=== PATIENT | female | born 1990 | race Caucasian/White ===

== ENCOUNTER 2017-10-18 00:19 | Inpatient (IN) | payer BC ==
--- NOTE | 2017-10-18 06:37 | PCM.LDHP ---
L&D History of Present Illness - General Date of Service: 10/18/17 Admit Problem/Dx: Admission Diagnosis/Problem Admission Diagnosis/Problem 10/18/17 06:25 41-2/7 week intrauterine , medical induction for postdates Source of Information: Patient History Limitations: Reports: No Limitations - History of Present Illness Introduction:: History of present illness: Sharmila is a 27-year-old 4 para 3003 white female was admitted for medical induction for postdatism. Her ADAMA is 10/09/2017 as based upon a certain last menstrual period which started on 01/02/2017 and is supported by multiple ultrasounds on 03/27/2017, 06/04/2017 and 07/06/2017. Presently the patient's cervical evaluation shows 2 cm, 80% effaced, very soft consistency, mid position and -3. Plan is to proceed with Pitocin/artificial rupture membranes induction. The procedure, risks, benefits, alternatives of care including waiting for natural onset of labor all discussed with patient in detail. She appears understand and wishes to proceed. 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 Certain last menstrual period occurred on 01/02/2017 and lasted for 5 days. Her cycles come on a every 28 day basis. Menarche was at age 11. She is using no control to time conception. Tayler course has been relatively unremarkable. She declined genetic screening. She desires epidural in labor and delivery. Josephine depression screening score on 05/30/2017 was 0/30. Patient had a cyst in left ventricular echogenic focus seen on routine complete ultrasound at about 20 weeks. She declined [place] testing when this was noted to persist on repeat ultrasound. Patient plans to nurse the baby. She had mildly decreased platelets and on last evaluation in clinic her platelet count was 149,000. She is group B strep positive and is a candidate for antibiotic prophylaxis in labor and delivery. She has no known drug allergies. Patient was initially seen care on 03/27/2017 at 12 weeks gestation. Over the course of the she made good fundal height growth, vital signs remained stable. Weight increased from 146 pounds up to 176 pounds for a 30 pound weight gain. Laboratory testing and showed her blood type to be A+ with negative antibody screen. First laboratory testing showed hemoglobin 12.9 g/dL and a platelet count of 225,000. Group B strep was present in the initial urine culture. She is rubella immune. Second trimester labs showed a hemoglobin of 11.2 g/dL which time she was started on iron replacement therapy. Platelets are 149,000. Her diabetic screening test was normal at 91. Allergies none Medications: 1. Ferrous sulfate 3 and 25 mg twice a day 2. vitamins daily Past medical history: 1. Normal spontaneous vaginal delivery 3 Past surgical history unremarkable Family history: Patient's 3 daughters ages 73 and 2 alive and well. One brother age 36 alive and well. One sister age 37 alive and well. Mother age 56 alive and well except for parathyroid glands were removed due to nodules which were noncancerous. Father age 56 is alive and well. Maternal grandmother is alive and well except for arthritis and gout tissues. Maternal grandfather is alive but with a history of diabetes and bypass surgery 3, hypertension and a renal condition. Paternal grandmother is alive and well. Paternal grandfather is secondary to heart condition. No anesthesia, bleeding, blood clotting problems noted in the family. Social history: Patient is , is Darius Ramsey. 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 She does not use any significant amounts of alcohol, drugs or tobacco. She had her live in [place], [place]. Review of systems: In general patient has no concerns. She is feeling good activity and no significant contractions at this time. Skin: Negative HEENT, neck and back: Negative Cardiovascular: No chest pain or exercise intolerance Respiratory: No shortness of breath or infectious symptoms Breasts: Changes associated with . Patient does plan to breast-feed GI: Negative. : Increased fundal height consistent with . Musculoskeletal: Occasional edema otherwise unremarkable Neurological: Negative Physical exam: In general patient is well-developed, well-nourished, pleasant female stated age in no acute distress. Blood pressure on last evaluation clinic was 140/71, weight was 176.4 with pre- weight at 146 pounds. heart rate was 129. Her pre- body mass index was 25.6 and height is 5 feet 2 inches. Skin is warm dry without lesions. HEENT neck and back within normal limits Lungs are clear with good breath sounds in all lung mercado. Breast exam is deferred having been done at first visit found to be normal. Abdomen is protuberant with last fundal height at 40.5 cm with baby in vertex presentation. Cervix is 2 cm dilated, 80% effaced, very soft, mid position, -3 station on last evaluation clinic. Extremities and neurological exam are grossly within normal limits. - Related Data Allergies/Adverse Reactions: Allergies Allergy/AdvReac Type Severity Reaction Status Date / Time No Known Allergies Allergy Verified 01/23/14 13:09 Home Medications: Home Meds Amoxicillin 500 mg PO TID #21 tab 01/23/14 [Rx] Hydrocodone/Acetaminophen [Hydrocodone-Acetaminophen 5-325] 1 tab PO Q6H PRN # 15 tablet 01/23/14 [Rx] Ondansetron [Zofran ODT] 4 mg PO Q6H PRN #10 tab.dis 01/23/14 [Rx] PNV95/Ferrous Fumarate/FA [ Multivitamins] 1 each PO 07/13/14 [History] Acetaminophen [Tylenol] 650 mg PO Q6H PRN #50 tablet 07/15/14 [Rx] Benzocaine/Menthol [Dermoplast Pain Relief [place]] 1 spray TOP ASDIRECTED PRN #1 canister 07/15/14 [Rx] Docusate Sodium [Colace] 100 mg PO BID PRN #50 cap 07/15/14 [Rx] Ibuprofen [Motrin] 200 - 800 mg PO Q6H PRN #50 tablet 07/15/14 [Rx] Witch Trixie [Tucks] 1 pad TOP ASDIRECTED PRN #50 pad 07/15/14 [Rx] Past Medical History - Past Health History Medical/Surgical History: Denies Medical/Surgical History H&P Review of Systems - Review of Systems: Review Of Systems: See Below L&D Exam - Exam Exam: See Below Problem List Initiated/Reviewed/Updated: Yes Assessment/Plan Comment:: 1. 41-2/7 week intrauterine , admitted for medical induction of labor. 2. Group B strep positive status-candidate for ampicillin prophylaxis. 3. Rubella immune 4. Patient plans to breast-feed 5. Patient desires epidural in labor and delivery Plan: 1. Pitocin/artificial rupture membranes induction. Procedure, risks, benefits, alternatives of care including awaiting natural onset of labor all discussed with patient. She appears understand and wishes to proceed. I feel the benefits of induction outweigh the potential risk of induction at this time. 2. Epidural when necessary per patient desire 3. Support breast-feeding decision 4. CBC upon admission
[2017-10-18] MEDS ORDERED: Nalbuphine 20 MG/ML 1 ML Syringe IVPUSH PRN (06:42)
[2017-10-18] MEDS ORDERED: Sodium Chloride 0.9% 10 ML Syringe FLUSH PRN (06:42)
[2017-10-18] MEDS ORDERED: Lidocaine 1% 50 ML MDV INJECT ONE (06:42)
[2017-10-18] MEDS ORDERED: Ampicillin 2 GM in Sodium Chloride 0.9% 100 ML IV ONE (07:00)
[2017-10-18] MEDS: Oxytocin/Lactated Ringers 10 UNIT/1,000 ML BAG IV SCH ×2 (07:54→19:57)
[2017-10-18] MEDS: Lactated Ringers 1,000 ML IV SCH ×4 (07:55→19:54)
[2017-10-18] MEDS: Ampicillin 1 GM in Sodium Chloride 0.9% 100 ML IV SCH ×3 (11:19→19:55)
[2017-10-18] MEDS ORDERED: diphenhydrAMINE 50 MG/ML SDV IVPUSH PRN (12:05)
[2017-10-18] MEDS ORDERED: ePHEDrine 50 MG/ML SDV IVPUSH PRN (12:05)
[2017-10-18] MEDS ORDERED: fentaNYL 100 MCG/2 ML SDV EPIDUR PRN (12:05)
[2017-10-18] MEDS ORDERED: Bupivacaine/fentaNYL/NS 100 ML Bag EPIDUR SCH (12:15)
--- NOTE | 2017-10-18 12:56 | PCM.PREANE ---
Preanesthetic Assessment - Anesthesia/Transfusion/Family Hx Anesthesia History: Prior Anesthesia Without Reaction Family History of Anesthesia Reaction: No Transfusion History: No Prior Transfusion(s) - Review of Systems General: No Symptoms Pulmonary: No Symptoms Cardiovascular: No Symptoms Gastrointestinal: No Symptoms Neurological: No Symptoms Other: Reports: None - Physical Assessment Pulse: 69 O2 Sat by Pulse Oximetry: 97 Respiratory Rate: 18 Blood Pressure: 140/87 Temperature: 36.8 C Vital Signs: Last Vital Signs Temp 36.8 C 10/18/17 07:21 Pulse 69 10/18/17 07:21 Resp 18 10/18/17 07:21 BP 140/87 10/18/17 07:21 Pulse Ox Height: 1.57 m Weight: 78.834 kg ASA Class: 2 Mental Status: Alert & Oriented x3 Airway Class: Mallampati = 1 Dentition: Reports: Normal Dentition Thyro-Mental Finger Breadths: 3 Mouth Opening Finger Breadths: 3 ROM/Head Extension: Full Lungs: Clear to Auscultation, Normal Respiratory Effort Cardiovascular: Regular Rate, Regular Rhythm - Lab Values: Laboratory Last Values WBC 9.41 K/mm3 (3.98-10.04) 10/18/17 07:53 RBC 3.55 M/mm3 (3.98-5.22) L 10/18/17 07:53 Hgb 11.7 gm/L (11.2-15.7) 10/18/17 07:53 Hct 35.0 % (34.1-44.9) 10/18/17 07:53 MCV 98.6 fl (79.4-94.8) H 10/18/17 07:53 MCH 33.0 pg (25.6-32.2) H 10/18/17 07:53 MCHC 33.4 g/dl (32.2-35.5) 10/18/17 07:53 RDW Std Deviation 45.1 fL (36.4-46.3) 10/18/17 07:53 Plt Count 144 K/mm3 (182-369) L 10/18/17 07:53 MPV 10.3 fl (9.4-12.3) 10/18/17 07:53 Neut % (Auto) 68.0 % (34.0-71.1) 10/18/17 07:53 Lymph % (Auto) 20.4 % (19.3-51.7) 10/18/17 07:53 [place] % (Auto) 8.8 % (4.7-12.5) 10/18/17 07:53 Eos % (Auto) 2.3 (0.7-5.8) 10/18/17 07:53 Baso % (Auto) 0.2 % (0.1-1.2) 10/18/17 07:53 Neut # (Auto) 6.39 K/mm3 (1.56-6.13) H 10/18/17 07:53 Lymph # (Auto) 1.92 K/mm3 (1.18-3.74) 10/18/17 07:53 [place] # (Auto) 0.83 K/mm3 (0.24-0.36) H 10/18/17 07:53 Eos # (Auto) 0.22 K/mm3 (0.04-0.36) 10/18/17 07:53 Baso # (Auto) 0.02 K/mm3 (0.01-0.08) 10/18/17 07:53 - Allergies Allergies/Adverse Reactions: Allergies Allergy/AdvReac Type Severity Reaction Status Date / Time No Known Allergies Allergy Verified 10/18/17 07:23 - Anesthesia Plan Pre-Op Medication Ordered: None - Acknowledgements Anesthesia Type Planned: Epidural Pt an Appropriate Candidate for the Planned Anesthesia: Yes Alternatives and Risks of Anesthesia Discussed w Pt/Guardian: Yes Pt/Guardian Understands and Agrees with Anesthesia Plan: Yes PreAnesthesia Questionnaire - Past Health History Medical/Surgical History: Denies Medical/Surgical History Gastrointestinal History: Reports: GERD 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: Hematologic History: Reports: Anemia - Past Surgical History HEENT Surgical History: Reports: Oral Surgery - SUBSTANCE USE Smoking Status *Q: Never Smoker Recreational Drug Use History: No - HOME MEDS Home Medications: Home Meds Amoxicillin 500 mg PO TID #21 tab 01/23/14 [Rx] Hydrocodone/Acetaminophen [Hydrocodone-Acetaminophen 5-325] 1 tab PO Q6H PRN # 15 tablet 01/23/14 [Rx] Ondansetron [Zofran ODT] 4 mg PO Q6H PRN #10 tab.dis 01/23/14 [Rx] PNV95/Ferrous Fumarate/FA [ Multivitamins] 1 each PO 07/13/14 [History] Acetaminophen [Tylenol] 650 mg PO Q6H PRN #50 tablet 07/15/14 [Rx] Benzocaine/Menthol [Dermoplast Pain Relief [place]] 1 spray TOP ASDIRECTED PRN #1 canister 07/15/14 [Rx] Docusate Sodium [Colace] 100 mg PO BID PRN #50 cap 07/15/14 [Rx] Ibuprofen [Motrin] 200 - 800 mg PO Q6H PRN #50 tablet 07/15/14 [Rx] Witch Trixie [Tucks] 1 pad TOP ASDIRECTED PRN #50 pad 07/15/14 [Rx] - CURRENT (IN HOUSE) MEDS Current Meds: Current Medications Diphenhydramine HCl (Benadryl) 25 mg IVPUSH Q6H PRN PRN Reason: Itching Ephedrine Sulfate (Ephedrine Sulfate) 5 mg IVPUSH ASDIRECTED PRN PRN Reason: HYPOTENTSION Fentanyl (Sublimaze) 100 mcg EPIDUR Q3H PRN PRN Reason: PAIN Last Admin: 10/18/17 12:50 Dose: 100 mcg Fentanyl/Bupivacaine HCl (Fentanyl/Bupivacaine/Ns 2 Mcg-0.125% 100 Ml) 100 ml EPIDUR ASDIRECTED ROMEL Last Admin: 10/18/17 12:51 Dose: 100 ml Ampicillin Sodium 1 gm/ Sodium (Chloride) 100 mls @ 200 mls/hr IV Q4H ROMEL Last Admin: 10/18/17 11:19 Dose: 200 mls/hr Lactated Ringer's (Ringers, Lactated) 1,000 mls @ 100 mls/hr IV ASDIRECTED [facility] Last Infusion: 10/18/17 12:44 Dose: 100 mls/hr Oxytocin/Lactated Ringer's (Pitocin In Lr 10 Units/1,000 Ml) 10 unit in 1,000 mls @ 12 mls/hr IV TITRATE ROMEL; Protocol Last Titration: 10/18/17 10:20 Dose: 10 munits/min, 60 mls/hr Nalbuphine HCl (Nubain) 10 mg IVPUSH Q2H PRN PRN Reason: Pain (moderate 4-6) Sodium Chloride (Saline Flush) 10 ml FLUSH ASDIRECTED PRN PRN Reason: Keep Vein Open Discontinued Medications Ampicillin Sodium 2 gm/ Sodium (Chloride) 100 mls @ 200 mls/hr IV ONETIME ONE Stop: 10/18/17 07:29 Last Admin: 10/18/17 07:33 Dose: 200 mls/hr Lidocaine HCl (Xylocaine 1%) 10 ml INJECT ONETIME ONE Stop: 10/18/17 06:43
[2017-10-18] MEDS ORDERED: Bupivacaine 0.25% 10 ML SDV ONE (14:00)
[2017-10-18] MEDS ORDERED: Acetaminophen 325 MG Tab PO ONE (20:44)
--- NOTE | 2017-10-18 21:35 | PCM.SN ---
- Free Text/Narrative Note: Sharmila is a 27-year-old 4 now para 4004 white female at 41-2/7 weeks gestational age with an ADAMA of 10/09/2017 was admitted on 10/18/2017 for medical induction for post dates. She was induced with Pitocin followed by artificial rupture membranes. She progressed to complete cervical dilation by 0 hrs. she went on to deliver a viable, devries, female infant with Apgars of 8 and 9 , weight of 3420 g (7 pounds 8.6 ounces), a length of 20.5 inches in a left occiput anterior position at 2110 hrs. Baby was placed on mom's abdomen. The cord was noted be very short and had 3 blood vessels. The cord was clamped 2 and cut by the baby's father. Cord blood was obtained. The perineum and vagina were found to be intact with no lacerations. No suturing was necessary. The placenta delivered at 2115 hrs. in a [place] presentation. It appeared intact, complete and was discarded per patient desire. Estimated blood loss was 100 mL. Patient plans to nurse. Condition: Good.
[2017-10-18] MEDS ORDERED: Docusate Sodium 100 MG Cap PO PRN (22:47)
[2017-10-18] MEDS ORDERED: Witch Hazel Medicated Pads 100/Jar TOP PRN (22:47)
[2017-10-18] MEDS ORDERED: Acetaminophen 325 MG Tab PO PRN (22:47)
[2017-10-18] MEDS ORDERED: Lanolin 100% Cream 7 GM Tube TOP PRN (22:47)
[2017-10-18] MEDS ORDERED: Benzocaine/Menthol 20%-0.5% Spray 56 GM Canister TOP PRN (22:47)
[2017-10-19] MEDS: Ibuprofen 600 MG Tab PO PRN ×3 (00:11→21:30)
--- NOTE | 2017-10-19 09:22 | PCM.SN ---
- Free Text/Narrative Note: note: Patient is doing well in the period. Minimal lochia, voiding well, ambulated without problems. Nursing without concerns. Patient is afebrile, vital signs are stable Abdomen is flat, soft, uterus is below the umbilicus and is firm and nontender. Legs are nontender. Hemoglobin is 10.5. Platelets are 138. Assessment: recovery going well. Plan: Routine care. Patient be discharged home within the next 24- 48 hours.
--- NOTE | 2017-10-19 13:05 | PCM48HPAN ---
Post Anesthesia Note - EVALUATION WITHIN 48HRS OF ANESTHETIC Vital Signs in Normal Range: Yes Patient Participated in Evaluation: Yes Respiratory Function Stable: Yes Airway Patent: Yes Cardiovascular Function Stable: Yes Hydration Status Stable: Yes Pain Control Satisfactory: Yes Nausea and Vomiting Control Satisfactory: Yes Mental Status Recovered: Yes
[2017-10-20] MEDS: Ibuprofen 600 MG Tab PO PRN ×2 (05:03→10:29)
[2017-10-20 08:19] VITALS: BP 134/92
--- NOTE | 2017-10-20 10:39 | PCM.DCSUM1 ---
Discharge Summary - Hospital Course Free Text/Narrative:: [facility] Provider Simple Note Patient Name: SHARMILA GALVEZ Date of : 86 Patient Status: Inpatient Attending Provider: Mike Corey Date: 10/18/17 21:30 Initialization Date: 10/18/17 21:30 - Free Text/Narrative Note: Sharmila is a 27-year-old 4 now para 4004 white female at 41-2/7 weeks gestational age with an ADAMA of 10/09/2017 was admitted on 10/18/2017 for medical induction for post dates. She was induced with Pitocin followed by artificial rupture membranes. She progressed to complete cervical dilation by 2050 hrs. she went on to deliver a viable, devries, female infant with Apgars of 8 and 9 , weight of 3420 g (7 pounds 8.6 ounces), a length of 20.5 inches in a left occiput anterior position at 2110 hrs. Baby was placed on mom's abdomen. The cord was noted be very short and had 3 blood vessels. The cord was clamped 2 and cut by the baby's father. Cord blood was obtained. The perineum and vagina were found to be intact with no lacerations. No suturing was necessary. The placenta delivered at 2115 hrs. in a [place] presentation. It appeared intact, complete and was discarded per patient desire. Estimated blood loss was 100 mL. Patient plans to nurse. Condition: Good. HPI Initial Comments: [facility] Provider Simple Note Patient Name: SHARMILA GALVEZ Date of : 86 Patient Status: Inpatient Attending Provider: Mike Corey Date: 10/18/17 21:30 Initialization Date: 10/18/17 21:30 - Free Text/Narrative Note: Sharmila is a 27-year-old 4 now para 4004 white female at 41-2/7 weeks gestational age with an ADAMA of 10/09/2017 was admitted on 10/18/2017 for medical induction for post dates. She was induced with Pitocin followed by artificial rupture membranes. She progressed to complete cervical dilation by 2049 hrs. she went on to deliver a viable, devries, female with Apgars of 8 and 9 , weight of 3420 g (7 pounds 8.6 ounces), a length of 20.5 inches in a left occiput anterior position at 2110 hrs. Baby was placed on mom's abdomen. The cord was noted be very short and had 3 blood vessels. The cord was clamped 2 and cut by the baby's father. Cord blood was obtained. The perineum and vagina were found to be intact with no lacerations. No suturing was necessary. The placenta delivered at 2115 hrs. in a [place]za presentation. It appeared intact, complete and was discarded per patient desire. Estimated blood loss was 100 mL. Patient plans to nurse. Condition: Good. Brief History: [facility] . Provider Simple Note. Patient Name : SHARMILA GALVEZ [facility] Record Number: [id number]. Date of : Patient Status: Inpatient. Attending Provider: Mike Corey FAccount Number : [id number]. Date: 10/18/17 21:30Initialization Date: 10/18/17 21:30. - Free Text/Narrative. Note: Sharmila is a 27-year-old 4 now para 4004 white female at 41-2/7 weeks gestational age with an ADAMA of 10/09/2017 was admitted on 10/18/2017 for medical induction for post dates. She was induced with Pitocin followed by artificial rupture membranes. She progressed to complete cervical dilation by 2049 hrs. she went on to deliver a viable, devries, female with Apgars of 8 and 9, weight of 3420 g (7 pounds 8.6 ounces), a length of 20.5 inches in a left occiput anterior position at 2110 hrs. Baby was placed on mom's abdomen. The cord was noted be very short and had 3 blood vessels. The cord was clamped 2 and cut by the baby's father. Cord blood was obtained. The perineum and vagina were found to be intact with no lacerations. No suturing was necessary. The placenta delivered at 2115 hrs. in a [place]za presentation. It appeared intact, complete and was discarded per patient desire. Estimated blood loss was 100 mL. Patient plans to nurse. Condition: Good. - Discharge Data Discharge Date: 10/20/17 Discharge Disposition: Home, Self-Care 01 Condition: Good - Discharge Diagnosis/Problem(s) (1) 41 weeks gestation of SNOMED Code(s): 74209718 ICD Code: Z3A.41 - 41 WEEKS GESTATION OF Status: Acute Current Visit: Yes (2) Delivery normal SNOMED Code(s): 48127785, 059061486 ICD Code: O80 - ENCOUNTER FOR FULL-TERM UNCOMPLICATED DELIVERY Status: Acute Current Visit: Yes - Patient Summary/Data Complications: None Consults: None Hospital Course: Uneventful - Discharge Plan Home Medications: Home Meds Amoxicillin 500 mg PO TID #21 tab 01/23/14 [Rx] Hydrocodone/Acetaminophen [Hydrocodone-Acetaminophen 5-325] 1 tab PO Q6H PRN # 15 tablet 01/23/14 [Rx] Ondansetron [Zofran ODT] 4 mg PO Q6H PRN #10 tab.dis 01/23/14 [Rx] PNV95/Ferrous Fumarate/FA [ Multivitamins] 1 each PO 07/13/14 [History] Acetaminophen [Tylenol] 650 mg PO Q6H PRN #50 tablet 07/15/14 [Rx] Benzocaine/Menthol [Dermoplast Pain Relief [place]] 1 spray TOP ASDIRECTED PRN #1 canister 07/15/14 [Rx] Docusate Sodium [Colace] 100 mg PO BID PRN #50 cap 07/15/14 [Rx] Ibuprofen [Motrin] 200 - 800 mg PO Q6H PRN #50 tablet 07/15/14 [Rx] Witch Trixie [Tucks] 1 pad TOP ASDIRECTED PRN #50 pad 07/15/14 [Rx] Referrals: Mike Corey MD [Primary Care Provider] - (Call Sunday for an appointment to see Dr. Corey in 2 weeks.) - Discharge Summary/Plan Comment DC Time >30 min.: No - Patient Data Vitals - Most Recent: Last Vital Signs Temp 98.2 F 10/20/17 07:25 Pulse 46 L 10/20/17 07:25 Resp 16 10/20/17 07:25 BP 134/92 H 10/20/17 07:25 Pulse Ox 96 10/20/17 07:25 Weight - Most Recent: 173 lb 12.8 oz Med Orders - Current: Current Medications Acetaminophen (Tylenol) 650 mg PO Q4H PRN PRN Reason: mild pain or fever Last Admin: 10/19/17 06:14 Dose: 650 mg Benzocaine/Menthol (Dermoplast Pain Relief [place]) 0 gm TOP ASDIRECTED PRN PRN Reason: Perineal Comfort Measure Last Admin: 10/19/17 00:31 Dose: 1 canister Docusate Sodium (Colace) 100 mg PO BID PRN PRN Reason: Constipation Last Admin: 10/19/17 00:11 Dose: 100 mg Emollient Ointment (Lansinoh Hpa) 0 gm TOP ASDIRECTED PRN PRN Reason: Sore Nipples Ibuprofen (Motrin) 600 mg PO Q4H PRN PRN Reason: Mild pain or fever Last Admin: 10/20/17 10:29 Dose: 600 mg Witch Trixie (Tucks) 1 pad TOP ASDIRECTED PRN PRN Reason: Hemorrhoid pain Last Admin: 10/19/17 00:30 Dose: 1 container Discontinued Medications Acetaminophen (Tylenol) 650 mg PO NOW ONE Stop: 10/18/17 20:45 Last Admin: 10/18/17 20:57 Dose: 650 mg Diphenhydramine HCl (Benadryl) 25 mg IVPUSH Q6H PRN PRN Reason: Itching Ephedrine Sulfate (Ephedrine Sulfate) 5 mg IVPUSH ASDIRECTED PRN PRN Reason: HYPOTENTSION Fentanyl (Sublimaze) 100 mcg EPIDUR Q3H PRN PRN Reason: PAIN Last Admin: 10/18/17 12:50 Dose: 100 mcg Fentanyl/Bupivacaine HCl (Fentanyl/Bupivacaine/Ns 2 Mcg-0.125% 100 Ml) 100 ml EPIDUR ASDIRECTED ROMEL Last Admin: 10/18/17 12:51 Dose: 100 ml Ampicillin Sodium 2 gm/ Sodium (Chloride) 100 mls @ 200 mls/hr IV ONETIME ONE Stop: 10/18/17 07:29 Last Admin: 10/18/17 07:33 Dose: 200 mls/hr Ampicillin Sodium 1 gm/ Sodium (Chloride) 100 mls @ 200 mls/hr IV Q4H ROMEL Last Admin: 10/18/17 19:55 Dose: 200 mls/hr Lactated Ringer's (Ringers, Lactated) 1,000 mls @ 100 mls/hr IV ASDIRECTED ROMEL Last Admin: 10/18/17 19:54 Dose: 100 mls/hr Oxytocin/Lactated Ringer's (Pitocin In Lr 10 Units/1,000 Ml) 10 unit in 1,000 mls @ 12 mls/hr IV TITRATE ROMEL; Protocol Last Admin: 10/18/17 19:57 Dose: 16 munits/min, 96 mls/hr Lidocaine HCl (Xylocaine 1%) 10 ml INJECT ONETIME ONE Stop: 10/18/17 06:43 Nalbuphine HCl (Nubain) 10 mg IVPUSH Q2H PRN PRN Reason: Pain (moderate 4-6) Sodium Chloride (Saline Flush) 10 ml FLUSH ASDIRECTED PRN PRN Reason: Keep Vein Open
== END 2017-10-20 15:10 | disposition home or self-care (01) | DRG 560 ==
LOC: JD.OB 06:59 → OBSVTOIN 21:10 → JD.OB 21:10
PROVIDERS: ADMIT Obstetrics & Gynecology; ATTEND Obstetrics & Gynecology
PROC: 10E0XZZ Delivery of Products of Conception, External Approach (ICD-10-PCS; principal; 2017-10-18)
PROC: 10907ZC Drainage of Amniotic Fluid, Therapeutic from Products of Conception, Via Natural or Artificial Opening (ICD-10-PCS; 2017-10-18)
PROC: 3E033VJ Introduction of Other Hormone into Peripheral Vein, Percutaneous Approach (ICD-10-PCS; 2017-10-18)
PROC: 6A550ZT Pheresis of Cord Blood Stem Cells, Single (ICD-10-PCS; 2017-10-18)
PROC: 00HU33Z Insertion of Infusion Device into Spinal Canal, Percutaneous Approach (ICD-10-PCS; 2017-10-18)
PROC: 3E0R3BZ Introduction of Anesthetic Agent into Spinal Canal, Percutaneous Approach (ICD-10-PCS; 2017-10-18)
DX: O48.0 Post-term pregnancy (principal); Z3A.41 41 weeks gestation of pregnancy; O99.824 Streptococcus B carrier state complicating childbirth; O69.3XX0 Labor and delivery complicated by short cord, not applicable or unspecified; Z37.0 Single live birth
CPT/HCPCS: 36415; 51702; 59025; 59409; 85025; 85027; A9270-GY; J0290; J2590; J3010; J7030; J7120

== ENCOUNTER 2020-03-21 02:58 | Emergency (ER) | payer OTHER ==
[2020-03-21 03:09] VITALS: BP 190/132; PULSE 75
--- NOTE | 2020-03-21 03:24 | EDM.PDOC ---
ED HPI GENERAL MEDICAL PROBLEM - General Chief Complaint: Cardiovascular Problem Stated Complaint: HIGH BLOOD PRESSURE Time Seen by Provider: 03/21/20 03:09 Source of Information: Reports: Patient History Limitations: Reports: No Limitations - History of Present Illness INITIAL COMMENTS - FREE TEXT/NARRATIVE: Mrs. Ramsey is a very pleasant 30-year-old woman with no chronic medical problems, on no medications, who now presents the ED with a concern about elevated blood pressure. She states that she was lying in bed around 01:15 this morning, when she felt a pinch in her neck, followed by the sensation of rapid palpitations and anxiety. She felt like she was likely having a panic attack. She checked her blood pressure, finding it to be elevated. She then checked her blood pressure every 5 minutes, repeatedly, while her blood pressure gradually decreased, it was still relatively elevated, therefore she decided to come to the ED for evaluation. She is concerned that if her blood pressure remains elevated, she might have a heart attack or stroke. No prior similar symptoms. The patient denies having a headache, visual changes, such as blurry vision, or neurologic symptoms, such as tingling, numbness, or weakness. Here in the ED, the patient's initial BP is found to be elevated at 190/132. She is afebrile, saturating 100% on room air. Prior to this morning, the patient denies having a recent fever, chills, sore throat, ear pain, nasal or sinus congestion, cough, dyspnea, chest pain, palpitations, nausea, vomiting, constipation, diarrhea, abdominal pain, urinary symptoms, recent weight gain or weight loss, recent bloody bowel movements or black bowel movements, recent joint aches, headaches, or rashes. The patient's PCP is Lacy Alexander NP. Left Neck Pain Score (Numeric/FACES): 4 - Related Data Allergies Allergy/AdvReac Type Severity Reaction Status Date / Time No Known Allergies Allergy Verified 03/21/20 03:09 Home Meds: Home Meds . [No Known Home Meds] 03/21/20 [History] Past Medical History - Past Surgical History HEENT Surgical History: Reports: Oral Surgery (dental extractions) Social & Family History - Tobacco Use Tobacco Use Status *Q: Current Every Day Tobacco User Years of Tobacco use: 14 Packs/Tins Daily: 0.3 - Caffeine Use Caffeine Use: Reports: Coffee - Alcohol Use Alcohol Use History: Yes Alcohol Use Frequency: Rarely - Recreational Drug Use Recreational Drug Use: No - Living Situation & Occupation Living situation: Reports: , with Spouse, with Family (4 kids) Occupation: Unemployed ED ROS GENERAL - Review of Systems Review Of Systems: Comprehensive ROS is negative, except as noted in HPI. ED EXAM, GENERAL - Physical Exam Exam: See Below Exam Limited By: No Limitations General Appearance: Alert, WD/WN, No Apparent Distress Eye Exam: Bilateral Eye: EOMI, Normal Inspection Ears: Normal External Exam, Hearing Grossly Normal Nose: Normal Inspection Throat/Mouth: Normal Inspection, Normal Lips, Normal Voice, No Airway Compromise Head: Atraumatic, Normocephalic Neck: Normal Inspection, Full Range of Motion Respiratory/Chest: No Respiratory Distress, Lungs Clear, Normal Breath Sounds, No Accessory Muscle Use Cardiovascular: Normal Peripheral Pulses, Regular Rate, Rhythm, No Edema, No Gallop, No JVD, No Murmur, No Rub Peripheral Pulses: 3+: Radial (L), Radial (R) GI/Abdominal: Normal Bowel Sounds, Soft, Non-Tender, No Organomegaly, No Distention, No Abnormal Bruit, No Mass Back Exam: Normal Inspection, Full Range of Motion, NT Extremities: Normal Inspection, Normal Range of Motion, No Pedal Edema, Normal Capillary Refill Neurological: Alert, Oriented, Normal Cognition, No Motor/Sensory Deficits Psychiatric: Normal Affect Skin Exam: Warm, Dry, Intact, Normal Color, No Rash #1 Interpretation EKG Date: 03/21/20 Time: 03:25 Rhythm: NSR Rate (Beats/Min): 65 [place]: Normal P-Wave: Present QRS: Normal ST-T: Normal QT: Normal Comparison: No Change (01/23/2014) Course - Vital Signs Last Recorded V/S: Last Vital Signs Temp 36.8 C 03/21/20 03:05 Pulse 75 03/21/20 03:05 Resp 15 03/21/20 03:05 BP 190/132 H 03/21/20 03:05 Pulse Ox 100 03/21/20 03:05 - Orders/Labs/Meds Orders: Active Orders 24 hr Category Date Time Status EKG Documentation Completion [RC] STAT Care 03/21/20 03:21 Active - Re-Assessments/Exams Free Text/Narrative Re-Assessment/Exam: 03/21/20 03:22 As above, the patient developed the sensation of rapid palpitations and a panic attack earlier this morning, checked her blood pressure, finding it to be elevated, then rechecked it numerous times afterwards, and while her values decreased over time, there was still relatively elevated, therefore the patient came to the ED for evaluation. Her BP is elevated here in the ED, however, the patient states that she is still feeling panicky. She denies having a headache, visual changes, or neuro symptoms, such as tingling, numbness, or weakness. Her physical exam is completely unremarkable. I have ordered an ECG to determine her rhythm. 03/21/20 03:45 The patient's ECG demonstrates a normal sinus rhythm at 65 bpm. Is a completely normal ECG, with no ectopy or QT prolongation. This was discussed with the patient, who states that despite the ECG, she still feels like her heart is racing. We discussed the option of performing additional tests. I explained that there are no tests for anxiety, per se, that one cannot draw a blood level of anxiety, however, if the patient wanted, we could run a number of nonspecific tests to make sure that nothing else is wrong. If the patient's heart rate were actually elevated, I think such a work-up might be useful, to make sure that there was no medical cause of her tachycardia, however, since the patient's heart rate is not actually elevated, I don't think such a work-up is necessary at this time. I believe it would unnecessarily run up an expensive ED bill. The patient agreed. I will therefore discharge the patient home with the recommendation that, in accordance with current guidelines, she check her blood pressure 2 to 3 times a week for 2 to 3 weeks, but only under restful conditions. She should write the numbers down then present them to her PCP when she follows up with her. If the patient continues to have symptoms of anxiety, she should talk to her PCP about treatment options, however, I reassured the patient that if her current symptoms resolve and do not recur, then it is probably not in her best interest to take an antianxiety medication every day for months or years, simply to treat a single episode. The patient agreed with that rationale, as well. Departure - Departure Time of Disposition: 03:49 Disposition: Home, Self-Care 01 Condition: Good Clinical Impression: Panic attack - Discharge Information *PRESCRIPTION DRUG MONITORING PROGRAM REVIEWED*: Not Applicable *COPY OF PRESCRIPTION DRUG MONITORING REPORT IN PATIENT DUANE: Not Applicable Instructions: Panic Attack, [id number] Referrals: Lacy Alexander NP [Primary Care Provider] - Forms: ED Department Discharge Additional Instructions: You were seen in the emergency room after developing the sensation of rapid palpitations and a panic attack, finding your blood pressure to be elevated. Work-up in the ER included an ECG, which returned completely normal. While you may feel like your heart rate is elevated, your heart rate was in fact completely normal at 65 beats per minute. Based on your history, physical exam, and ECG, you are most likely suffering from a panic attack. As discussed, additional work-up was offered, but declined. We recommend that you check your blood pressure 2-3 times a week for 2 to 3 weeks, but only under restful conditions, which means that you are sitting quietly for at least 5, and preferably 15 minutes, that the arm that you are checking your blood pressure on is supported at the level of your heart, that you are not in pain, that you are not anxious, and that you are not sick. Write the numbers down, then present them to your PCP, Lacy Alexander NP, at your next evaluation. She can then determine if you have hypertension, and if so, treat it. Additionally, if your symptoms of anxiety and panic continue or recur, you can talk to Lacy Alexander NP, about treatment options. If any other problems, please do not hesitate to return to the ER. Sepsis Event Note (ED) - Evaluation Sepsis Screening Result: No Definite Risk - Focused Exam Vital Signs: Vital Signs Temp Pulse Resp BP Pulse Ox 03/21/20 03:05 36.8 C 75 15 190/132 H 100 - My Orders Last 24 Hours: My Active Orders 03/21/20 03:21 EKG Documentation Completion [RC] STAT - Assessment/Plan Last 24 Hours: My Active Orders 03/21/20 03:21 EKG Documentation Completion [RC] STAT
== END 2020-03-21 03:59 | disposition home or self-care (01) ==
LOC: JD.ED 02:58
DX: F41.0 Panic disorder [episodic paroxysmal anxiety] (principal); F17.210 Nicotine dependence, cigarettes, uncomplicated
CPT/HCPCS: 93005; 93010; 99282; 99284-25

== ENCOUNTER 2022-10-02 09:23 | Emergency (ER) | payer OTHER ==
[2022-10-02 09:39] VITALS: BP 145/95; PULSE 64
[2022-10-02 10:37] LABS: BASOPHILS ABSOLUTE AUTO 0.02 K/mm3 (0.01-0.08); BASOPHILS PERCENT AUTO 0.3 % (0.1-1.2); EOSINOPHILS ABSOLUTE AUTO 0.05 K/mm3 (0.04-0.36); EOSINOPHILS PERCENT AUTO 0.7 (0.7-5.8); HEMATOCRIT 45.1 % (34.1-44.9); HEMOGLOBIN 14.9 gm/dl (11.2-15.7); LYMPHOCYTES ABSOLUTE AUTO 0.89 K/mm3 (1.18-3.74); LYMPHOCYTES PERCENT AUTO 13.3 % (19.3-51.7); MEAN PLATELET VOLUME 10.4 fl (9.4-12.3); MONOCYTES ABSOLUTE AUTO 0.32 K/mm3 (0.24-0.36); MONOCYTES PERCENT AUTO 4.8 % (4.7-12.5); NEUTROPHILS PERCENT AUTO 80.9 % (34.0-71.1); PLATELET COUNT,PLT 181 K/mm3 (182-369); RED BLOOD CELL COUNT 4.65 M/mm3 (3.98-5.22); WHITE BLOOD CELL COUNT,WBC 6.68 K/mm3 (3.98-10.04)
[2022-10-02 11:03] LABS: A/G RATIO 1.1 (1-2); ALANINE AMINOTRANSFERASE,ALT 29 U/L (14-59); ALBUMIN 3.9 g/dl (3.4-5.0); ALKALINE PHOSPHATASE 54 U/L (46-116); ANION GAP 13.5 (5-15); ASPARTATE AMNIOTRANSFERASE,AST 19 U/L (15-37); BILIRUBIN TOTAL 0.5 mg/dL (0.2-1.0); BLOOD UREA NITROGEN,BUN 5 mg/dL (7-18); BUN/CREATININE RATIO 7.1 (14-18); C-REACTIVE PROTEIN <0.2 mg/dL (<1.0); CALCIUM 9.4 mg/dL (8.5-10.1); CARBON DIOXIDE,CO2 23 mEq/L (21-32); CHLORIDE,CL 107 mEq/L (98-107); CREATININE 0.7 mg/dL (0.55-1.02); EST CRCL DRUG DOSING (CG) 89.56 mL/min; ESTIMATED GFR 116 mL/min (>60); GLUCOSE RANDOM 88 mg/dL (70-99); MAGNESIUM 1.9 mg/dL (1.8-2.4); POTASSIUM,K 3.5 mEq/L (3.5-5.1); PROTEIN TOTAL,TP 7.6 g/dl (6.4-8.2); SODIUM,NA 140 mEq/L (136-145); TROPONIN I HIGH SENSITIVITY 5 pg/mL (<=51); TSH 0.715 uIU/mL (0.358-3.74)
[2022-10-02] MEDS ORDERED: Sodium Chloride 0.9% 1,000 ML IV STA (11:16)
[2022-10-02] MEDS ORDERED: Ondansetron 4 MG/2 ML SDV IVPUSH ONE (11:16)
[2022-10-02] MEDS ORDERED: Iopamidol 755 Mg/ML 100 ML Bottle IVPUSH ONE (11:18)
[2022-10-02] MEDS ORDERED: Sodium Chloride 0.9% 10 ML Syringe FLUSH PRN (11:18)
[2022-10-02] MEDS ORDERED: Sodium Chloride 0.9% 100 ML IV SCH (11:30)
[2022-10-02 11:52] LABS: APPEARANCE,URINE CLEAR (Clear); BILIRUBIN,URINE NEGATIVE (Negative); COLOR,URINE YELLOW (Yellow); GLUCOSE,URINE NEGATIVE (Negative); KETONES,URINE NEGATIVE (Negative); LEUKOCYTE ESTERASE,URINE NEGATIVE (Negative); NITRITE,URINE NEGATIVE (Negative); OCCULT BLOOD,URINE TRACE-LYSED (Negative); PROTEIN,URINE NEGATIVE (Negative); UROBILINOGEN,URINE 0.2 (0.2-1.0)
[2022-10-02 12:02] LABS: BACTERIA,URINE RARE /hpf (FEW); MUCUS,URINE NOT SEEN /hpf (FEW); RBC,URINE 0-5 /hpf (0-5); SQUAMOUS EPITHELIAL CELLS,UR 0-5 /hpf (0-5); WBC,URINE 0-5 /hpf (0-5)
== END 2022-10-02 13:32 | disposition home or self-care (01) ==
LOC: JD.ED 09:23
DX: R42 Dizziness and giddiness (principal); R11.0 Nausea; R53.83 Other fatigue; R07.89 Other chest pain; R06.02 Shortness of breath
CPT/HCPCS: 36415; 71275; 80053; 81001; 83735; 84443; 84484; 84703; 85025; 85379; 86140; 93005; 96360; 99284; J3490; J7030; Q9967; 93010

== ENCOUNTER 2022-10-27 17:26 | Emergency (ER) | payer OTHER ==
[2022-10-27] MEDS ORDERED: Sodium Chloride 0.9% 10 ML Syringe FLUSH PRN (18:17)
[2022-10-27 18:32] LABS: BASOPHILS ABSOLUTE AUTO 0.02 K/mm3 (0.01-0.08); BASOPHILS PERCENT AUTO 0.3 % (0.1-1.2); EOSINOPHILS ABSOLUTE AUTO 0.08 K/mm3 (0.04-0.36); EOSINOPHILS PERCENT AUTO 1.3 (0.7-5.8); HEMATOCRIT 44.9 % (34.1-44.9); HEMOGLOBIN 15.2 gm/dl (11.2-15.7); LYMPHOCYTES ABSOLUTE AUTO 1.27 K/mm3 (1.18-3.74); MEAN CORPUSCULAR HEMOGLOBIN 32.2 pg (25.6-32.2); MEAN CORPUSCULAR HGB CONC 33.9 g/dl (32.2-35.5); MEAN CORPUSCULAR VOLUME 95.1 fl (79.4-94.8); MEAN PLATELET VOLUME 10.2 fl (9.4-12.3); MONOCYTES ABSOLUTE AUTO 0.54 K/mm3 (0.24-0.36); MONOCYTES PERCENT AUTO 8.5 % (4.7-12.5); NEUTROPHILS ABSOLUTE AUTO 4.43 K/mm3 (1.56-6.13); NEUTROPHILS PERCENT AUTO 69.9 % (34.0-71.1); PLATELET COUNT,PLT 192 K/mm3 (182-369); RED BLOOD CELL COUNT 4.72 M/mm3 (3.98-5.22); WHITE BLOOD CELL COUNT,WBC 6.34 K/mm3 (3.98-10.04)
[2022-10-27 18:49] LABS: A/G RATIO 1.1 (1-2); ALANINE AMINOTRANSFERASE,ALT 28 U/L (14-59); ALBUMIN 4.3 g/dl (3.4-5.0); ALKALINE PHOSPHATASE 60 U/L (46-116); ANION GAP 9.6 (5-15); ASPARTATE AMNIOTRANSFERASE,AST 21 U/L (15-37); BILIRUBIN TOTAL 0.4 mg/dL (0.2-1.0); BLOOD UREA NITROGEN,BUN 7 mg/dL (7-18); CALCIUM 10.3 mg/dL (8.5-10.1); CARBON DIOXIDE,CO2 26 mEq/L (21-32); CHLORIDE,CL 106 mEq/L (98-107); CREATININE 0.7 mg/dL (0.55-1.02); EST CRCL DRUG DOSING (CG) 89.56 mL/min; ESTIMATED GFR 116 mL/min (>60); GLUCOSE RANDOM 100 mg/dL (70-99); POTASSIUM,K 3.6 mEq/L (3.5-5.1); PROTEIN TOTAL,TP 8.1 g/dl (6.4-8.2); SODIUM,NA 138 mEq/L (136-145)
[2022-10-27 18:51] LABS: HCG QUANTITATIVE < 1.0 mIU/mL
[2022-10-27 20:55] VITALS: BP 135/83; PULSE 60
== END 2022-10-27 20:56 | disposition home or self-care (01) ==
LOC: JD.ED 17:26
DX: R42 Dizziness and giddiness (principal); R07.89 Other chest pain; F17.210 Nicotine dependence, cigarettes, uncomplicated
CPT/HCPCS: 36415; 71046; 80053; 84443; 84484; 84702; 85025; 85379; 93005; 99285; J3490